=== PATIENT | female | born 1990 | race Caucasian/White ===

== ENCOUNTER 2022-10-21 10:13 | Emergency (ER) | payer OTHER ==
[2022-10-21] MEDS ORDERED: NA CHLORIDE 0.9% 1,000 ML ONE (11:01)
[2022-10-21 11:11] LABS: Absolute Lymphocytes (CBC) 0.3 K/uL (0.7-4.9); Hematocrit 39.4 % (36.0-45.0); MCV 94.7 fL (80-100); MPV 8.1 fL (7.6-11.3); Platelets 239 thou/uL (152-406); RBC Red Blood Cell Count 4.16 M/uL (3.86-4.86)
[2022-10-21 11:28] LABS: Specific Gravity 1.013 (1.005-1.030)
[2022-10-21 11:29] LABS: Potassium 4.7 mEq/L (3.5-5.1)
[2022-10-21 11:31] LABS: Specific Gravity 1.013 (1.005-1.030); Urine Bacteria <20 /HPF (<20); Urine Bilirubin NEGATIVE (Negative); Urine Blood Negative (Negative); Urine Clarity Clear (Clear); Urine Color Colorless (Yellow); Urine Glucose 2+ (Negative); Urine Protein NEGATIVE (Negative); Urine RBC <5 /HPF (None Seen); Urine Urobilinogen Normal (Normal)
--- NOTE | 2022-10-21 12:28 | ER ---
Nurse's Notes [facility] Name: Meghna Johnson Age: 32 yrs Sex: Female : 1990 Arrival Date: 10/21/2022 Time: 10:13 Bed 5 Private MD: Diagnosis: Other specified diabetes mellitus without complications Presentation: 10/21 10:23 Note Pt access radioed for help in the lobby with a pt. Pt noted to be sitting in jl7 wheelchair hunched over, palpated pulse, pulse strong and regular, readjusted pt to sit back, pt not verbally responding. Wheeled pt to ER room 5, pt able to stand and transfer to bed without assistance. 10:24 Chief complaint: Spouse and/or significant other states: Landon, pt's marbella, reports 7 pt woke this morning with BGL in the 60's, now it's up to 150's but she's now not verbally reponding. Coronavirus screen: At this time, the client does not indicate any symptoms associated with coronavirus-19. Ebola Screen: No symptoms or risks identified at this time. Initial Sepsis Screen: Does the patient meet any 2 criteria? No. Patient's initial sepsis screen is negative. Does the patient have a suspected source of infection? No. Patient's initial sepsis screen is negative. Risk Assessment: Do you want to hurt yourself or someone else? Patient reports no desire to harm self or others. Onset of symptoms is unknown. 10:24 Method Of Arrival: Wheelchair [facility] 10:24 Acuity: NIKITA 3 jl7 Historical: - Allergies: 10:29 No Known Allergies; jl7 - Home Meds: 10:29 insulin [Active]; jl7 - PMHx: 10:29 diabetes mellitus; jl7 - Immunization history:: Adult Immunizations unknown. - Social history:: Smoking status: unknown. Screenin:55 [facility] ED Fall Risk Assessment (Adult) History of falling in the last 3 months, ph including since admission No falls in past 3 months (0 pts) Confusion or Disorientation No (0 pts) Intoxicated or Sedated No (0 pts) Impaired Gait No (0 pts) Mobility Assist Device Used No (0 pt) Altered Elimination No (0 pt) Score/Fall Risk Level 0 - 2 = Low Risk Oriented to surroundings, Maintained a safe environment, Hourly rounding (assess needs \T\ fall precautionary measures) done. Abuse screen: Denies threats or abuse. Denies injuries from another. Nutritional screening: No deficits noted. Tuberculosis screening: No symptoms or risk factors identified. Assessment: 10:56 General: Appears in no apparent distress. comfortable, Behavior is calm, cooperative, ph appropriate for age. Pain: Denies pain. Neuro: Level of Consciousness is awake, obeys commands, confused, lethargic, Oriented to person, place. Neuro: Reports dizziness, weakness. Cardiovascular: Capillary refill < 3 seconds in bilateral fingers Patient's skin is warm and dry. Respiratory: Airway is patent Respiratory effort is even, unlabored, Respiratory pattern is regular, symmetrical. GI: Patient currently denies abdominal pain, diarrhea, nausea, vomiting. Derm: Skin is pink, warm \T\ dry. 12:07 Reassessment: Patient appears in no apparent distress at this time. Patient and/or hb family updated on plan of care and expected duration. Pain level reassessed. Patient is alert, oriented x 3, equal unlabored respirations, skin warm/dry/pink. Vital Signs: 10:24 BP 114 / 89; Pulse 96; Resp 17; Temp 98.8; Pulse Ox 100% ; jl7 10:57 BP 142 / 87; Pulse 94; Resp 18; Pulse Ox 98% on R/A; ph 12:08 BP 150 / 85; Pulse 90; Resp 15; Pulse Ox 100% ; hb ED Course: 10:13 Patient arrived in ED. rg4 10:22 Patient has correct armband on for positive identification. Bed in low position. Call mm9 light in reach. Side rails up X2. Adult w/ patient. Warm blanket given. Client placed on continuous cardiac and pulse oximetry monitoring. NIBP monitoring applied. fulfillment representative on. Pulse ox on. NIBP on. 10:23 Amado Lemus PA is PHCP. cp 10:23 Amado Sampson MD is Attending Physician. cp 10:29 Triage completed. jl7 10:29 Arm band placed on right wrist. jl7 10:55 Irish Ríos, GERBER is Primary Nurse. ph 10:55 Basic Metabolic Panel Sent. ph 10:55 CBC with Diff Sent. ph 10:55 Magnesium Sent. ph 10:57 Initial lab(s) drawn, by me, sent to lab. Inserted saline lock: 22 gauge in left ph antecubital area, using aseptic technique. Blood collected. 11:01 Mother of patient Suzanne Johnson would like to be called with updates her contact info [phone]. 12:38 Provided Education on: . hb 12:38 No provider procedures requiring assistance completed. IV discontinued, intact, hb bleeding controlled, No redness/swelling at site. Administered Medications: 10:54 Drug: NS 0.9% IV 1000 ml Route: IV; Rate: 1 bolus; Site: left antecubital; jl7 11:30 Follow up: Response: No adverse reaction; IV Status: Completed infusion ph Medication: 10:56 VIS not applicable for this client. Point of Care Testing: Blood Glucose: 10:31 Blood Glucose: 114 mg/dL; jl7 Ranges: Outcome: 12:27 Discharge ordered by MD. cp 12:38 Discharged to home ambulatory, with significant other. hb 12:38 Condition: stable 12:38 Discharge instructions given to patient, Instructed on discharge instructions, follow up and referral plans. medication usage, Demonstrated understanding of instructions, follow-up care, medications. 12:44 Patient left the ED. hb Signatures: Irish Ríos, RN RN ph Amado Lemus, SASHA PA Arelis Sanchez, RN RN Jerilyn Pinto rg4 Reena Espino RN RN jl7 Sol Mishra Maria mm9
--- NOTE | 2022-10-21 12:28 | EDPHYS ---
Physician Documentation [facility] Name: Meghna Johnson Age: 32 yrs Sex: Female : 1990 Arrival Date: 10/21/2022 Time: 10:13 Bed 5 Private MD: ED Physician Amado Sampson HPI: 10/21 10:33 This 32 yrs old Female presents to ER via Wheelchair with complaints of Low Blood Sugar.cp 10:33 The patient or guardian reports hypoglycemia, that was potentially precipitated by cp taking prescribed insulin. Onset: The symptoms/episode began/occurred this morning. Associated signs and symptoms: Pertinent positives: generalized shaking, Pertinent negatives: diarrhea, vomiting, fever. Current symptoms: In the emergency department the patient's symptoms are unchanged from the initial presentation, despite home interventions. Historical: - Allergies: 10: No Known Allergies; jl7 - Home Meds: 10:29 insulin [Active]; jl7 - PMHx: 10:29 diabetes mellitus; jl7 - Immunization history:: Adult Immunizations unknown. - Social history:: Smoking status: unknown. ROS: 10:35 Constitutional: Negative for fever. cp 10:35 Eyes: Negative for injury, pain, redness, and discharge. cp 10:35 ENT: Negative for drainage from ear(s), ear pain, sore throat, difficulty swallowing, difficulty handling secretions. 10:35 Cardiovascular: Negative for chest pain. 10:35 Respiratory: Negative for cough, shortness of breath, wheezing. 10:35 Abdomen/GI: Negative for abdominal pain, vomiting, diarrhea, constipation. 10:35 : Negative for urinary symptoms. 10:35 Neuro: Negative for altered mental status, loss of consciousness, seizure activity. 10:35 All other systems are negative. Exam: 10:40 Constitutional: The patient appears in no acute distress, alert, awake, cp non-diaphoretic, non-toxic, well developed, well nourished. 10:40 Head/Face: Normocephalic, atraumatic. cp 10:40 Eyes: Periorbital structures: appear normal, Pupils: equal, round, and reactive to light and accomodation, Conjunctiva: normal, no exudate, no injection, Sclera: no appreciated abnormality, Lids and lashes: appear normal, bilaterally. 10:40 ENT: External ear(s): are unremarkable, Nose: is normal, Mouth: Lips: moist, Oral mucosa: pink and intact, moist, Posterior pharynx: is normal, airway is patent, no erythema, no exudate. 10:40 Neck: ROM/movement: is normal, is supple, without pain, no range of motions limitations, no meningismus, no nuchal rigidity. 10:40 Chest/axilla: Inspection: normal. 10:40 Cardiovascular: Rate: normal, Rhythm: regular. 10:40 Respiratory: the patient does not display signs of respiratory distress, Respirations: normal, no use of accessory muscles, Breath sounds: are clear throughout, no decreased breath sounds, no stridor, no wheezing. 10:40 Abdomen/GI: Inspection: abdomen appears normal, Palpation: abdomen is soft and non-tender, in all quadrants. 10:40 Neuro: Mentation: able to follow commands, slow to respond, Motor: moves all fours. Vital Signs: 10:24 BP 114 / 89; Pulse 96; Resp 17; Temp 98.8; Pulse Ox 100% ; jl7 10:57 BP 142 / 87; Pulse 94; Resp 18; Pulse Ox 98% on R/A; ph 12:08 BP 150 / 85; Pulse 90; Resp 15; Pulse Ox 100% ; hb MDM: 10:25 Patient medically screened. cp 11:00 Differential diagnosis: DKA, hypoglycemia. cp 12:26 Data reviewed: vital signs, nurses notes, lab test result(s), EKG. cp 12:26 Independent interpretation of the following test(s) in the Emergency Department EKG: cp See my EKG interpretation above. Historians other than the Patient: Spouse/Significant Other: provides HPI. Counseling: I had a detailed discussion with the patient and/or guardian regarding the historical points, exam findings, and any diagnostic results supporting the discharge/admit diagnosis, lab results, to return to the emergency department if symptoms worsen or persist or if there are any questions or concerns that arise at home. Response to treatment: the patient's symptoms have markedly improved after treatment, and as a result, I will discharge patient. 10/21 10: Order name: Basic Metabolic Panel; Complete Time: 11:30 cp 10/21 11:30 Interpretation: Normal except: NA 131; GLUC 236; CRE 1.11; GFR 68. cp 10/21 10:27 Order name: CBC with Diff; Complete Time: 11:29 10/21 11:34 Interpretation: JAYME% 88.3; LYM% 5.0; LYMA 0.3; Reviewed. 10/21 10:27 Order name: Magnesium; Complete Time: 11:33 10/21 10:27 Order name: Urinalysis W/Microscopic; Complete Time: 11:33 10/21 11:33 Interpretation: Normal except: UGLUC 2+; UKET TRACE. 10/21 10:27 Order name: PREGU; Complete Time: 11:53 10/21 11:07 Order name: Glucose, Ancillary Testing; Complete Time: 11:29 EDMS 10/21 11:38 Order name: Glucose, Ancillary Testing; Complete Time: 11:53 EDMS 10/21 11:53 Interpretation: Abnormal: GLUC,ANCIL 248. 10/21 12:20 Order name: Glucose, Ancillary Testing; Complete Time: 12:25 EDMS 10/21 12:25 Interpretation: GLUC,ANCIL 270; Reviewed. 10/21 10:27 Order name: Cardiac monitoring; Complete Time: 10:55 10/21 10:27 Order name: EKG - Nurse/Tech; Complete Time: 12:29 10/21 10:27 Order name: IV Saline Lock; Complete Time: 10:55 10/21 10:27 Order name: Labs collected and sent; Complete Time: 10:55 10/21 10:27 Order name: O2 Per Protocol; Complete Time: 10:55 10/21 10:27 Order name: O2 Sat Monitoring; Complete Time: 10:55 10/21 12:06 Order name: Accucheck Blood Glucose; Complete Time: 12:29 cp Administered Medications: 10:54 Drug: NS 0.9% IV 1000 ml Route: IV; Rate: 1 bolus; Site: left antecubital; jl7 11:30 Follow up: Response: No adverse reaction; IV Status: Completed infusion ph Point of Care Testing: Blood Glucose: 10:31 Blood Glucose: 114 mg/dL; jl7 Ranges: Critical Glucose Levels:Adult <50 mg/dl or >400 mg/dl <40 mg/dl or >180 mg/dl Disposition Summary: 10/21/22 12:27 Discharge Ordered Location: Home cp Problem: chronic cp Symptoms: have improved cp Condition: Stable cp Diagnosis - Other specified diabetes mellitus without complications cp Followup: cp - With: Private Physician - When: 2 - 3 days - Reason: Recheck today's complaints Discharge Instructions: - Discharge Summary Sheet cp - Carbohydrate Counting for Diabetes Mellitus, Adult cp - Daily Diabetes Mellitus Record cp Forms: - Medication Reconciliation Form cp - Thank You Letter cp - Antibiotic Education cp - Prescription Opioid Use cp - Patient Portal Instructions cp - Leadership Thank You Letter cp Signatures: Dispatcher [employer] Amado Gutierrez PA PA cp Leal, Jahala RN RN jl7 Irish Ríos RN ph Corrections: (The following items were deleted from the chart) 10/22 10:42 10:40 This 32 yrs old Female presents to ER via Wheelchair with complaints of Low Blood cp Sugar. cp
[2022-10-21 12:48] VITALS: TEMP 98.8
[2022-10-21 12:51] VITALS: BP 150/85; O2SAT 100
== END 2022-10-21 12:44 | disposition home or self-care (01) ==
LOC: ER 10:13
DX: E13.649 Other specified diabetes mellitus with hypoglycemia without coma (principal); Z79.4 Long term (current) use of insulin
CPT/HCPCS: 85025; 81001; 80048; 36415; 83735; 81025; 82947 ×3; J7030; 96360; 99285